=== PATIENT | female | born 1980 | race African-American/Black ===

== ENCOUNTER 2018-01-15 02:24 | Emergency (ER) | payer OTHER ==
[2018-01-15] MEDS ORDERED: Ketorolac Tromethamine 60 MG/2 ML VIAL ONE (03:27)
== END 2018-01-15 03:50 | disposition home or self-care (01) ==
LOC: ERS 02:24
DX: N60.12 Diffuse cystic mastopathy of left breast (principal)
CPT/HCPCS: 96372; J1885